=== PATIENT | female | born 1940 | race Caucasian/White ===

== ENCOUNTER → 2018-09-19 17:48 | Outpatient (CLI) | payer MEDICARE, SELFPAY ==
[2018-09-19 20:06] LABS: M R Staph aureus DNA By PCR Negative (Negative); Probe Check PASS; Specimen Processing Control PASS; Staph aureus DNA By PCR NEGATIVE (Negative)
== END ==
PROVIDERS: Family Provider Family Medicine; PCP Family Medicine; Referring Provider Podiatrist; Visit Provider Podiatrist
DX: L60.0 Ingrowing nail (principal)
CPT/HCPCS: 87070; 87075; 87077; 87186; 87205; 87640

== ENCOUNTER → 2019-05-26 09:45 | Outpatient (CLI) | payer MEDICARE, BC, SELFPAY ==
--- NOTE | 2019-05-26 10:20 | US_ITS ---
STUDY: RENAL ULTRASOUND - COMPLETE REASON FOR EXAM: Female, 79 years old. Stage III chronic kidney disease TECHNIQUE: Ultrasound evaluation of the kidneys was performed with real-time and static hooper-scale imaging. COMPARISON: None. FINDINGS: RIGHT KIDNEY: Normal location of the right kidney, which is normal in size. The right kidney measures 10.8 x 4.2 x 4.8 cm. There is increased echogenicity of the cortex of the right kidney. The renal cortex measures 1.1 cm. Simple anechoic cyst of the right kidney measures 4.5 cm. There are no right renal calculi. There is no right hydronephrosis. DISTAL RIGHT URETER: There is non-visualization of the distal right ureter. There is no demonstrated right ureterovesical junction calculus. There is no demonstrated right ureteral jet. LEFT KIDNEY: Normal location of the left kidney, which is normal in size. The left kidney measures 10.4 x 3.5 x 3.9 cm. There is increased echogenicity of the cortex of the left kidney. The renal cortex measures 1.0 cm. There is no left renal mass or cyst. There are no left renal calculi. There is no left hydronephrosis. DISTAL LEFT URETER: There is non-visualization of the distal left ureter. There is no demonstrated left ureterovesical junction calculus. There is a visualized left ureteral jet. BLADDER: The distended urinary bladder has a volume of 335 ml There is a normal wall thickness of the distended urinary bladder. There is no demonstrated mass within the urinary bladder. There are no demonstrated bladder calculi. US/Kidney and Bladder IMPRESSION: 1. No hydronephrosis. 2. Increased echogenicity of the renal cortices compatible with history of chronic kidney disease. 3. Simple right renal cyst. Electronically Signed: Sarbjit Rodriguez MD ([place]) at 8:04 EST , Service support ,
== END ==
PROVIDERS: Family Provider Family Medicine; PCP Family Medicine; Referring Provider Internal Medicine; Visit Provider Internal Medicine
DX: N18.3 Chronic kidney disease, stage 3 (moderate) (principal)
CPT/HCPCS: 76770

== ENCOUNTER 2020-06-24 10:43 | Outpatient (RCR) | payer MEDICARE, BC, SELFPAY ==
[2014-09-09 08:38] VITALS: BMI 43.7
== END 2020-06-24 23:59 ==
LOC: IMMUN 10:43
PROVIDERS: PCP Family Medicine; Referring Provider Family Medicine; Visit Provider Family Medicine
DX: Z23 Encounter for immunization (principal)
CPT/HCPCS: 0011A; 0012A

== ENCOUNTER 2021-02-18 10:54 | Emergency (ER) | payer MEDICARE, BC, SELFPAY ==
[2021-02-18 10:54] VITALS: BP 177/99; PULSE 62; RESP 18; TEMP 36.4; O2SAT 98; BMI 42.4
--- NOTE | 2021-02-18 11:05 | CT_ITS ---
HISTORY: Trauma, head injury TECHNIQUE: Multiple axial images were obtained of the brain without intravenous contrast. A radiation dose optimization technique was used for this scan. IV Contrast dosage and agent: None. COMPARISON: 09/09/14 FINDINGS: # of images incl. paperwork: 240 PARANASAL SINUSES AND MASTOID AIR CELLS: Right maxillary sinus hematoma. INTRACRANIAL HEMORRHAGE: None. BRAIN PARENCHYMA: No CT evidence of stroke. No intracranial masses. There is preservation of the ttae/white matter interface. Posterior fossa structures are unremarkable. There is hypoattenuation of the periventricular white matter. Chronic involutional changes are noted. CSF SPACES: Appropriate for age. There is no hydrocephalus. MASS EFFECT: None. CALVARIUM: Minimally displaced fractures of the anterior lateral wall right maxillary sinus, inferolateral wall right orbit. CT/Brain/Head without Contrast IMPRESSION: Chronic involutional and white matter changes. No acute intracranial process. Fractures of the right orbit and maxillary sinus. Individualized dose optimization techniques were used for this CT. at 1236 Reported and signed by: Derick Mike MD Electronically Signed: Derick Mike MD at 12:35 EDT Tel , Service support ,
--- NOTE | 2021-02-18 11:07 | EDS_ITS ---
HPI HPI - Fall History of Present Illness Chief Complaint: Fall Detail of Chief Complaint: Fall with injury to right posterior ribs and head Informant: patient Narrative Narrative: Patient states that she was walking into the laundry room when she tripped and fell. Patient hit her head but no loss of consciousness. She is complaining of some pain to her posterior right ribs. She denies any neck pain. She denies abdominal pain. She denies shortness of breath. She is unsure of her last tetanus shot. Patient did sustain laceration to the right lateral orbit [facility] Medical History (Updated 02/18/21 @ 12:[address] Ahsan Meyers, DO) Hyperlipemia Hypertension Home Medications aspirin 81 mg PO DAILY@0800 09/09/14 [History Last Taken 09/08/14 09:00] atorvastatin 20 mg PO QHS 09/09/14 [History Last Taken 09/08/14 22:00] amlodipine 5 mg PO DAILY 02/18/21 [History Last Taken Unknown] azithromycin [Zithromax] 250 mg PO DAILY 4 Days #4 tab 02/18/21 [Rx Last Taken Unknown] carvedilol 25 mg PO BID 02/18/21 [History Last Taken Unknown] irbesartan 300 mg PO DAILY 02/18/21 [History Last Taken Unknown] spironolactone 25 mg PO DAILY 02/18/21 [History Last Taken Unknown] Allergy/AdvReac Type Severity Reaction Status Date / Time erythromycin base Allergy Other Verified 02/18/21 11:01 Penicillins [PCN] Allergy Hives Verified 02/18/21 11:01 Surgical History (Updated 02/18/21 @ 10:59 by Danilo Martin) H/O: hysterectomy History of coronary artery stent placement Social History Smoking Status: Former smoker ROS ROS ED Constitutional Constitutional ED: Reports systems reviewed and no addt'l complaints, except as documented; Denies body ache(s), change in weight or chills Eyes Eyes: Denies acute decrease in peripheral vision, change in vision, double vision or loss of vision ENT ENT ED: Reports none and other Details: Laceration right lateral orbit ; Denies ear pain, lip swelling, loss taste/smell, neck pain, otalgia or sore throat Cardiovascular Cardiovascular: Reports none; Denies abdominal pain, chest pain with activity, leg edema, lightheadedness, palpitations, rapid heart rate or syncope Respiratory/Chest Respiratory/Chest: Reports none; Denies change in mental status, dry cough, dyspnea, hemoptysis, shortness of breath at rest or shortness of breath with exertion Gastrointestinal Gastrointestinal: Reports none; Denies abdominal pain, change in stool character, diarrhea, hematemesis, hematochezia, melena, rectal bleeding or vomiting Genitourinary Genitourinary ED: Reports none; Denies abdominal discomfort, anuria, dysuria, genital pain or polyuria Musculoskeletal Musculoskeletal: Reports none and other Details: Right posterior rib pain ; Denies arthralgias, back pain, difficulty walking, extremity pain, muscle weakness or myalgias Integumentary Reports none; Denies abscess or rash Neurologic Neurologic: Reports none; Denies abnormal gait, confusion, focal weakness, frequent falls, headache(s), loss of vision, numbness, paresthesias, radicular pain, vertigo or weakness Psychiatric Psychiatric: Reports systems reviewed and no addt'l complaints, except as documented and none; Denies behavioral changes, confusion, difficulty concentrating, hallucinations, suicidal ideation, tactile hallucinations or visual hallucinations Endocrine Endocrinology: Denies none, cold intolerance, excessive sweating, fatigue or heat intolerance Hematologic/Lymphatic Hematologic/Lymphatic: Reports none; Denies anemia, easy bleeding or easy bruising Allergic/Immunologic Allergic/Immunologic ED: Denies as per HPI, none, lip swelling, mouth swelling, throat swelling, tongue swelling or hives EXAM Physical Exam Const Vital Signs: 02/18/21 10:54 02/18/21 11:08 Temperature 97.5 F L Temperature Source Oral Pulse Rate 62 Respiratory Rate 18 Respiratory Effort Normal Respiratory Depth Normal Respiratory Pattern Normal Blood Pressure 177/99 H Blood Pressure Mean 125 Pulse Ox 98 Oxygen Delivery Method Room Air Room Air Positive well nourished and well developed General Appearance ED: well developed and NAD HEENT Reports TM's clear and moist mucous membranes HEENT Narrative: Patient is a 3.5 cm laceration to right lateral orbit is well approximated without active bleeding. No real bony tenderness on exam. No C- spine tenderness on palpation. normocephalic; Negative for trauma or tenderness Tympanic Membrane ED: Yes TM's clear Eyes PERRL and EOMs intact bilaterally General Eye ED: Negative for pale conjunctiva or scleral icterus Neck no lymphadenopathy, supple and no JVD General: Negative for tenderness Chest Wall inspection of chest normal and palpation of chest normal Chest: Negative for tenderness Resp normal respiratory effort and clear to auscultation bilaterally Effort and Inspection: Negative for respiratory distress or pain with movement Auscultation: Negative for rhonchi, wheezes or diminished lung sounds Cardio regular rate, regular rhythm, S1 normal heart sound, S2 normal heart sound and no murmurs Peripheral Pulses: pulses 2+ throughout GI normal to inspection, nondistended, normoactive bowel sounds, soft to palpation, non-tender, non-distended and no masses Back/Spine no CVA tenderness and no thoracic nor lumbar tenderness Back/Spine Narrative: Patient has tenderness palpation over the right lower posterior ribs. No ecchymosis or bruising noted. There is no crepitus or subcu emphysema. Extremity normal to inspection General Extremety ED: Negative for edema General Extremity: Negative for edema Neuro oriented x3, CN's II-XII intact bilaterally, no sensory deficits noted and gait normal Sensorium / Orientation: awake, alert, oriented to person, oriented to place and oriented to time Motor Exam: strength 5/5 throughout and strength abnormal Psych mental status grossly normal Skin no rashes or lesions noted and no wounds MDM MDM MDM Narrative Medical decision making narrative: Patient has noted fracture of right maxillary sinus and inferior lateral orbit that is essentially nondisplaced. Patient case will be discussed with ENT. I will start patient on antibiotic and she did not want thing for pain. Patient to have her sutures removed in 5 to 7 days. Radiography Diagnostic Testing: Radiology Impression Brain CT 02/18/21 11:05 IMPRESSION: Chronic involutional and white matter changes. No acute intracranial process. Fractures of the right orbit and maxillary sinus. Individualized dose optimization techniques were used for this CT. at 1236 Reported and signed by: Derick Mike MD Electronically Signed: Derick Mike MD at 12:35 EDT Tel , Service support , Ribs w/Chest X-Ray 02/18/21 11:33 IMPRESSION: No acute radiographic abnormality. at 1229 Reported and signed by: Derick Mike MD Electronically Signed: Derick Mike MD at 12:28 EDT Tel , Service support , Procedures Lacerations 3.5 cm laceration right lateral orbit: Length: 1.38 in Depth: Sub Q Shape: Linear Prep: Sterile Conditions Laceration repair: Irrigated, Lidocaine, Local and Skin sutures Irrigated (ml): 50 Number of Sutures/[place]: 6 Suture Information: Ethilon and Simple Discharge Plan Triage Chief Complaint: Fall ED Provider: Ahsan Meyers Dx/Rx/DC Orders Clinical Impression: Facial laceration, Closed head injury, Orbital fracture, Fracture of maxillary sinus Instructions: ED Facial Fracture, ED Head Injury (Adult), ED Laceration: All Closures Prescriptions: New azithromycin [Zithromax] 250 mg tablet 250 mg PO DAILY 4 Days Qty: 4 RF: 0 No Action atorvastatin 20 MG tablet 20 mg PO QHS RF: 0 aspirin 81 MG tablet,chewable 81 mg PO DAILY@0800 RF: 0 carvedilol 25 mg Tablet 25 mg PO BID RF: 0 amlodipine 5 mg Tablet 5 mg PO DAILY RF: 0 spironolactone 25 mg Tablet 25 mg PO DAILY RF: 0 irbesartan 300 mg Tablet 300 mg PO DAILY RF: 0 Primary Care Provider: Simone Manuel Referrals: Dave Johnson MD [STAFF PHYSICIAN] - 5 Days for suture removal Simone Manuel MD [Primary Care Provider] - Disposition Disposition: Home, Self Care
--- NOTE | 2021-02-18 11:33 | RAD_ITS ---
HISTORY: Trauma, fall, lateral rib pain EXAMINATION/TECHNIQUE: XR Ribs Unilateral W/ PA Chest Min 3 Views: COMPARISON: Chest x-ray October 19, 2012 FINDINGS: LINES/DEVICES: None. LUNGS: No consolidation, edema or effusion. No pneumothorax. MEDIASTINUM AND CARDIOVASCULAR STRUCTURES: Cardiac silhouette not enlarged. Central airways and mediastinal contour are unremarkable. RIBS AND OSSEOUS STRUCTURES: No evidence of an acute displaced rib fracture. RAD/Ribs Uni Min 3V w/PA Chest IMPRESSION: No acute radiographic abnormality. at 1229 Reported and signed by: Derick Mike MD Electronically Signed: Derick Mike MD at 12:28 EDT Tel , Service support ,
[2021-02-18] MEDS: Diphth,Pertuss(Acell),Tet Vac 0.5 ML Vial IM (13:14)
[2021-02-18] MEDS: Azithromycin 250 MG Tablet 500 MG PO (13:19)
[2021-02-18 13:21] VITALS: BP 167/102; PULSE 62; RESP 16; O2SAT 97
== END 2021-02-18 13:41 | disposition home or self-care (01) ==
PROVIDERS: Emergency Provider Emergency Medicine; PCP Family Medicine
DX: S01.81XA Laceration without foreign body of other part of head, initial encounter (principal); S02.85XA Fracture of orbit, unspecified, initial encounter for closed fracture; S02.401A Maxillary fracture, unspecified side, initial encounter for closed fracture; E78.5 Hyperlipidemia, unspecified; I10 Essential (primary) hypertension; W01.0XXA Fall on same level from slipping, tripping and stumbling without subsequent striking against object, initial encounter; Z79.82 Long term (current) use of aspirin; Z79.899 Other long term (current) drug therapy; Z87.891 Personal history of nicotine dependence
CPT/HCPCS: 12013; 70450; 71101; 90471; 90715; 96372; 99285

== ENCOUNTER 2021-05-02 10:52 | Emergency (ER) | payer MEDICARE, BC, SELFPAY ==
[2021-05-02 10:52] VITALS: BP 156/79; PULSE 66; RESP 18; TEMP 36.3; O2SAT 98; BMI 39.8
--- NOTE | 2021-05-02 11:22 | CT_ITS ---
STUDY: CT BRAIN WITHOUT CONTRAST REASON FOR EXAM: Female, 81 years old. Dizziness following a fall. Loss of consciousness. RADIATION DOSAGE (If Supplied By Facility): CTDIvol = ( 44.99 ) mGy, DLP = ( 745.49 ) mGycm TECHNIQUE: Transaxial CT imaging of the brain was performed without administration of intravenous contrast material. Individualized dose optimization techniques were used for this CT. COMPARISON: Comparison is made with prior study dated 02/18/2021. FINDINGS: Normal soft tissue structures. Normal calvarium. There is mild cerebral atrophy with widening of the extra-axial spaces and ventricular dilatation. Normal white matter tracts of the cerebral hemispheres. Tiny old lacunar infarcts in the basal ganglia. Old lacunar infarct in the insular cortex of the left temporal lobe. Normal brainstem. Normal cerebellum. There is no intracranial hemorrhage. There are no findings of an acute ischemic infarction. Prior fracture of the lateral wall of the right maxillary sinus. CT/Brain/Head without Contrast IMPRESSION: Chronic involutional changes of the brain. Electronically Signed: Jason Hernandez MD at 12:28 EST , Service support ,
--- NOTE | 2021-05-02 11:24 | ED.VIS.FALL ---
HPI HPI - Fall History of Present Illness Chief Complaint: Fall Detail of Chief Complaint: May have passed out. Informant: patient and family Occured/Mechanism Occurred: Today Usually ambulates: Without assistance Pain/Injury Pain Location: none Associated Symptoms Associated Symptoms: Positive for Loss of consciousness; Negative for Parasthesias, Weakness, Loss of function, Inability to ambulate and Amnesia Narrative Narrative: 81-year-old female was at home making breakfast cooking oatmeal in the next thing she remembers is waking up on the floor. Thinks she may have passed out. Says the only pain she has in her tailbone. She denies any headache or neck pain. Says she has had some dizziness lately. She does have a history of coronary disease with a stent and hypertension. Yellow anticoagulation she is on his aspirin. She denies any recent illness other than URI symptoms last several days. She denies vomiting, diarrhea or melena. No chest pain or headaches. Prior similar symptoms: No Recent Illness/Hospitalization: No PFSH PFSH Medical History Hyperlipemia Hypertension Home Medications aspirin 81 mg PO DAILY@0800 09/09/14 [History Last Taken 09/08/14 09:00] atorvastatin 20 mg PO QHS 09/09/14 [History Last Taken 09/08/14 22:00] amlodipine 5 mg PO DAILY 02/18/21 [History Last Taken Unknown] azithromycin [Zithromax] 250 mg PO DAILY 4 Days #4 tab 02/18/21 [Rx Last Taken Unknown] carvedilol 25 mg PO BID 02/18/21 [History Last Taken Unknown] irbesartan 300 mg PO DAILY 02/18/21 [History Last Taken Unknown] spironolactone 25 mg PO DAILY 02/18/21 [History Last Taken Unknown] Allergy/AdvReac Type Severity Reaction Status Date / Time erythromycin base Allergy Other Verified 05/02/21 10:57 Penicillins [PCN] Allergy Hives Verified 05/02/21 10:57 Surgical History H/O: hysterectomy History of coronary artery stent placement Social History Smoking Status: Former smoker ROS ROS ED ROS Narrative URI-like symptoms. Review of Systems ROS Unobtainable: Denies due to encephalopathy Constitutional Constitutional ED: Denies fever(s) Eyes Eyes: Denies change in vision ENT ENT ED: Denies ear pain Cardiovascular Cardiovascular: Denies chest pain Respiratory/Chest Respiratory/Chest: Reports cough; Denies dyspnea Gastrointestinal Gastrointestinal: Denies abdominal pain, diarrhea, nausea or vomiting Genitourinary Genitourinary ED: Denies dysuria Musculoskeletal Musculoskeletal: Denies myalgias Integumentary Denies rash Neurologic Neurologic: Denies headache(s) Psychiatric Psychiatric: Denies depression Endocrine Endocrinology: Denies polyuria Hematologic/Lymphatic Hematologic/Lymphatic: Denies easy bruising Allergic/Immunologic Allergic/Immunologic ED: Denies urticaria EXAM Physical Exam Narrative Exam Narrative: Hearing 81-year-old female. No acute distress. Vital signs stable afebrile. Pulse ox 90% on room air no hypoxia. HEENT exam unremarkable. Atraumatic nontender. No hematomas or lacerations. C-spine nontender. Full range of motion. Trachea midline. Lungs clear to auscultation bilaterally. Heart regular rate and rhythm rate about 65 no murmur. Chest were nontender. Abdomen soft nontender. Back nontender except mild tenderness over her distal coccyx. Pelvic girdle intact nontender. Moving all 4 extremities. Nontender, no edema. No deformity. Neurologically she is awake and alert with no focal motor deficits. Const Vital Signs: 05/02/21 10:52 05/02/21 12:24 05/02/21 12:25 Temperature 97.4 F L Temperature Source Temporal Pulse Rate 66 Pulse Rate [Lying] 57 L Pulse Rate [Sitting] 61 Pulse Rate [Standing] 55 L Respiratory Rate 18 Blood Pressure 156/79 H Blood Pressure [Lying] 123/60 H Blood Pressure [Sitting] 138/75 H Blood Pressure [Standing] 120/77 Blood Pressure Mean 104 Blood Pressure Mean [Lying] 81 Blood Pressure Mean [Sitting] 96 Blood Pressure Mean [Standing] 91 Pulse Ox 98 96 Oxygen Delivery Method Room Air Room Air 05/02/21 13:26 Temperature Temperature Source Pulse Rate 66 Pulse Rate [Lying] Pulse Rate [Sitting] Pulse Rate [Standing] Respiratory Rate 15 Blood Pressure 137/73 H Blood Pressure [Lying] Blood Pressure [Sitting] Blood Pressure [Standing] Blood Pressure Mean 94 Blood Pressure Mean [Lying] Blood Pressure Mean [Sitting] Blood Pressure Mean [Standing] Pulse Ox 98 Oxygen Delivery Method Room Air Positive well nourished, well developed and obese; Negative for cachectic, contractures or unkempt General Appearance ED: well developed and NAD; Negative for unkempt, cachectic or contractures Nutritional Appearance: obese; Negative for cachectic HEENT Reports normocephalic atraumatic; Negative for trauma or tenderness Eyes PERRL and EOMs intact bilaterally General Eye ED: Negative for pale conjunctiva or scleral icterus Neck full ROM, no lymphadenopathy and supple General: Negative for tenderness Chest Wall inspection of chest normal and palpation of chest normal Resp normal respiratory effort, no retractions and clear to auscultation bilaterally Auscultation: Negative for rales, rhonchi or wheezes Cardio regular rate, regular rhythm, S1 normal heart sound, S2 normal heart sound and no murmurs GI non-tender, non-distended and no masses Auscultation: normoactive bowel sounds Palpation: soft; Negative for guarding or rebound tenderness present Back/Spine no CVA tenderness Back/Spine Narrative: Mild tenderness over her distal tailbone. Lumbar spine nontender. General Back: Negative for CVA tenderness Extremity normal to inspection and full ROM Neuro oriented x3, CN's II-XII intact bilaterally, moves all extremities, no focal motor deficits and no sensory deficits noted Deanne Coma Scale: document GCS findings Spontaneous Obeys Commands Oriented 15 Sensorium / Orientation: alert, oriented to person, oriented to place and oriented to time; Negative for orientation impaired, confused, lethargic or stuporous Motor Exam: strength 5/5 throughout Psych mental status grossly normal and thought process normal Appearance: Negative for unkempt Skin Lesions: no lesions Rashes: no rashes and rashes noted MDM MDM MDM Narrative Medical decision making narrative: 81-year-old female possible syncopal episode at home. Versus she just fell. There may have been loss of consciousness. CAT scan labs are being obtained. Her exam is benign. She may have tailbone contusion. Repeat exam patient is doing well at 1:37 PM. Feels fine lying in bed. Orthostatic vital signs were negative. CAT scan of her brain was unremarkable per the radiologist. I reviewed it also. Discussed with patient causes of syncope. She did not want to be admitted to the hospital. I will speak to the on-call physician for her primary care physician and she will follow up for possible cardiac monitoring. Lab Data Attestation: I reviewed the patient's lab results. Lab results narrative: CBC shows a white count of 7. Hemoglobin 12.8. Electrolytes unremarkable gap of 7 BUN 24 creatinine 1.34. Glucose 139. High-sensitivity troponin is normal at 10. Labs: Laboratory Results - last 24 hr 05/02/21 05/02/21 11:40 11:40 WBC 7.3 RBC 4.31 Hgb 12.8 Hct 40.4 MCV 93.7 MCH 29.7 MCHC 31.7 L RDW Std Deviation 46.5 H RDW Coeff of Darren 13.5 Plt Count 284 MPV 10.5 Immature Gran % (Auto) 0.300 Neut % (Auto) 72.4 H Lymph % (Auto) 13.5 L [place] % (Auto) 13.0 H Eos % (Auto) 0.5 Baso % (Auto) 0.3 Absolute Neuts (auto) 5.3 Absolute Lymphs (auto) 0.98 Nucleated RBC % 0 Sodium 139 Potassium 4.4 Chloride 107 Carbon Dioxide 25.0 Anion Gap 7 BUN 24 H Creatinine 1.34 H Estim Creat Clear Calc 26.31 Est GFR (MDRD) Af Amer 49 L Est GFR (MDRD) Non-Af 40 L BUN/Creatinine Ratio 17.9 Glucose 139 H Calcium 9.3 Troponin I High Sens 10 Radiography Diagnostic Testing: Chest x-ray portable single view interpreted by myself shows no acute abnormality. Normal cardiac silhouette. Normal mediastinum. No infiltrates. Rhythm Strip Rhythm Strip: Sinus Rhythm Rate: 59 Ectopy: None EKG Initial EKG: Attestation: I personally reviewed and interpreted this EKG as follows: Interpretation: Sinus Rhythm and Sinus Bradycardia Comments: Sinus bradycardia rate of 59. No acute signs of VT or ischemia. First-degree AV block with a OK interval of 232. Discharge Plan Triage Chief Complaint: Fall ED Provider: Aditya Yanez Dx/Rx/DC Orders Clinical Impression: Syncope Instructions: Causes of Syncope Prescriptions: No Action atorvastatin 20 MG tablet 20 mg PO QHS RF: 0 aspirin 81 MG tablet,chewable 81 mg PO DAILY@0800 RF: 0 carvedilol 25 mg Tablet 25 mg PO BID RF: 0 amlodipine 5 mg Tablet 5 mg PO DAILY RF: 0 spironolactone 25 mg Tablet 25 mg PO DAILY RF: 0 irbesartan 300 mg Tablet 300 mg PO DAILY RF: 0 azithromycin [Zithromax] 250 mg tablet 250 mg PO DAILY 4 Days Qty: 4 RF: 0 Primary Care Provider: Simone Manuel Referrals: Simone Manuel MD [Primary Care Provider] - As soon as possible Activity Restrictions/Additional Instructions: Your labs, chest x-ray, EKG and CAT scan today were all unremarkable. Follow-up with your primary care doctor or your manager estate they may want to do cardiac monitoring to see if you are having an abnormal heart rhythm that may or may not be causing you to pass out. Disposition Disposition: Home, Self Care
[2021-05-02 11:53] LABS: Absolute Lymphocyte Count 0.98 X10^3/uL (0.83-4.51); Absolute Neutrophil Count 5.3 X10^3/uL (2.0-7.7); Basophil# 0.02 X10^3/uL; Basophil% 0.3 % (0-1); Eosinophil# 0.04 X10^3/uL; Eosinophils% 0.5 % (0-5); Hematocrit 40.4 % (37-47); Hemoglobin 12.8 g/dL (12.0-15.0); Lymphocyte # 0.98 X10^3/ul (0.83-4.51); Lymphocyte % 13.5 % (19-41); Mean Corp Hgb Conc 31.7 g/dL (32-36); Mean Corpuscular Hgb 29.7 pg (27.0-32.0); Mean Corpuscular Volume 93.7 fL (81-99); Mean Platelet Vol. 10.5 fl (6.2-12.0); Monocyte# 0.95 X10^3/uL; NRBC Flagged by Analyzer 0 % (0-5); Neutrophil # 5.27 X10^3/uL (2.7-7.7); Neutrophil % 72.4 % (47-70); Platelet Count 284 K/mm3 (150-450); RBC Distribution Width CV 13.5 % (11.6-14.6); RBC Distribution Width SD 46.5 fl (35.1-43.9); Red Blood Count 4.31 M/mm3 (4.2-5.4); White Blood Count 7.3 K/mm3 (4.4-11.0)
[2021-05-02 12:06] LABS: Anion Gap 7 (5-15); BUN 24 mg/dL (7-18); BUN/Creat Ratio 17.9 RATIO (10-20); Calcium,Total 9.3 mg/dL (8.5-10.1); Chloride 107 mmol/L (98-107); Creatinine, Serum 1.34 mg/dL (0.55-1.02); EST Glomerular Filtration Rate 40 mL/min (>60); Est Glom Filt Rate - Afr Amer 49 mL/min (>60); Estimated Creatinine Clearance 26.31 ml/min; Glucose 139 mg/dL (74-106); Potassium 4.4 mmol/L (3.5-5.1); Sodium Level 139 mmol/L (136-145); Troponin-I HS 10 pg/mL (3.0-54.0)
--- NOTE | 2021-05-02 12:15 | RAD_ITS ---
STUDY: X-RAY CHEST REASON FOR EXAM: Female, 81 years old. Chest pain. Dizziness. TECHNIQUE: Single AP portable view of the chest. COMPARISON: None. FINDINGS: EKG lateral views are seen. The lungs are clear and expanded. There is no demonstrated pleural abnormality. Normal size heart. Normal mediastinum and shilpa. Normal visualized pulmonary arteries. There is atherosclerotic calcification of the aortic arch with tortuosity. There is a levoscoliosis of the thoracic spine. Normal visualized ribs, clavicles, and shoulders. There is no demonstrated abnormality of the visualized soft tissue structures of the upper abdomen. RAD/Chest 1 View (Portable) IMPRESSION: No acute abnormality is seen. Electronically Signed: Jason Hernandez MD at 12:32 EST , Service support ,
[2021-05-02 12:24] VITALS: O2SAT 96
[2021-05-02 12:25] VITALS: BP 120/77; BP 123/60; BP 138/75; PULSE 55; PULSE 57; PULSE 61
[2021-05-02 13:26] VITALS: BP 137/73; PULSE 66; RESP 15; O2SAT 98
[2021-05-02 13:49] VITALS: BP 143/75; PULSE 81; RESP 6; O2SAT 98
== END 2021-05-02 13:50 | disposition home or self-care (01) ==
PROVIDERS: Emergency Provider Emergency Medicine; PCP Family Medicine
DX: R55 Syncope and collapse (principal); I10 Essential (primary) hypertension; E78.5 Hyperlipidemia, unspecified; E66.9 Obesity, unspecified; Z79.82 Long term (current) use of aspirin; Z79.899 Other long term (current) drug therapy; Z87.891 Personal history of nicotine dependence; Z95.5 Presence of coronary angioplasty implant and graft
CPT/HCPCS: 70450; 71045; 80048; 84484; 85025; 87426; 93005; 99284; A4216

== ENCOUNTER 2022-01-12 17:22 | Emergency (ER) | payer MEDICARE, SELFPAY ==
[2022-01-12 17:25] VITALS: BP 200/102; PULSE 100; RESP 18; TEMP 35.6; O2SAT 100; BMI 43.7
[2022-01-12 17:28] VITALS: BP 200/102; PULSE 100; RESP 18; TEMP 35.6; O2SAT 100
[2022-01-12 18:39] VITALS: BP 162/92; RESP 16
[2022-01-12] MEDS: Lidocaine 1% (20 ml mdv) 20 ML Vial 3 ML INFILT (18:39)
--- NOTE | 2022-01-12 18:57 | EX.ED.DYSGE1 ---
HPI <ASHLEY Hughes - Last Filed: 01/12/22 19:03> History of Present Illness Chief Complaint: Laceration Narrative Narrative: 81-year-old female who has history of hypertension, hyperlipidemia, CAD who is tetanus vaccination was up-to-date presents to the emergency department with a laceration to the left second digit. Patient states that she was sharpening a knife because she was making dinner, she then sliced the back of the left second digit. Patient has full range of motion of the digit. Patient saw the blood, and thought that she needed stitches. Denies any other injury. PFS <ASHLEY Hughes - Last Filed: 01/12/22 19:03> [facility] Medical History Hyperlipemia Hypertension Home Medications aspirin 81 mg chewable tablet 81 mg PO DAILY@0800 09/09/14 [History Last Taken 09/08/14 09:00] atorvastatin 20 mg tablet 20 mg PO QHS 09/09/14 [History Last Taken 09/08/14 22:00] amlodipine 5 mg tablet 5 mg PO DAILY 02/18/21 [History Last Taken Unknown] azithromycin 250 mg tablet (Zithromax) 250 mg PO DAILY 4 days #4 tabs 02/18/21 [Rx Last Taken Unknown] carvedilol 25 mg tablet 25 mg PO BID 02/18/21 [History Last Taken Unknown] irbesartan 300 mg tablet 300 mg PO DAILY 02/18/21 [History Last Taken Unknown] spironolactone 25 mg tablet 25 mg PO DAILY 02/18/21 [History Last Taken Unknown] Allergy/AdvReac Type Severity Reaction Status Date / Time erythromycin base Allergy Other Verified 05/02/21 10:57 Penicillins [PCN] Allergy Hives Verified 05/02/21 10:57 Surgical History H/O: hysterectomy History of coronary artery stent placement Social History Smoking Status: Former smoker ROS <ASHLEY Hughes - Last Filed: 01/12/22 19:03> ROS ED ROS Narrative Constitutional: Negative for fever, chills, weight loss, weakness Eyes: Negative for vision loss, vision change, double vision ENT: Negative for any sore throat, ear pain, congestion Cardiovascular: Negative for any chest pain, tightness, palpitations Respiratory: Negative for any cough, sputum production, hemoptysis, dyspnea, dyspnea on exertion, orthopnea Gastrointestinal: Negative for any abdominal pain, nausea, vomiting, diarrhea, constipation, blood in stool, blood in vomit : Negative for any urinary frequency, dysuria, retention, blood in urine Muscle skeletal: Negative for any muscle joint pain, stiffness, myalgias, arthralgias, neck pain, back pain Neurological: Negative for any headache, syncope, numbness or tingling, dizziness Skin: Negative for any rashes, lumps, itching, abrasions. Positive for laceration to the left second digit Psychiatric: Negative for any depression, anxiety, stress, suicidal ideation, homicidal ideation Hematologic: Negative for any easy bruising, excessive bruising, easy bleeding Allergies: Negative for any eczema, hives, rash EXAM <ASHLEY Hughes - Last Filed: 01/12/22 19:03> Physical Exam Narrative Exam Narrative: Vital signs reviewed. Extremities: No peripheral edema, no signs of gross trauma or deformity. Active full range of motion of all extremities. Patient has a 2.5 cm vertical laceration to the left second finger on the dorsal aspect. This laceration extends from the DIP joint to the PIP joint, there is no tendon involvement, no foreign body. Patient able to flex and extend the second digit against resistance. Neuro: Cranial nerves II through XII intact, no focal neurological deficits. Skin: Clean dry and intact with no rash, purpura, petechiae, vesicles or pustules. Laceration to left index finger 2.5 cm Backs/flank: No CVA tenderness, no midline spinal tenderness, no deformity. Psych: Normal mood and affect. No SI, HI or acute psychosis. Const Vital Signs: 01/12/22 17:25 01/12/22 17:28 01/12/22 18:39 Temperature 96.1 F L 96.1 F L Temperature Source Temporal Temporal Pulse Rate 100 100 Respiratory Rate 18 18 16 Blood Pressure 200/102 H 200/102 H 162/92 H Blood Pressure Mean 134 134 115 Pulse Ox 100 100 Oxygen Delivery Method Room Air Room Air <Dr. Allan Stoner, DO - Last Filed: 01/12/22 19:21> Physical Exam Const Vital Signs: 01/12/22 17:25 01/12/22 17:28 01/12/22 18:39 Temperature 96.1 F L 96.1 F L Temperature Source Temporal Temporal Pulse Rate 100 100 Respiratory Rate 18 18 16 Blood Pressure 200/102 H 200/102 H 162/92 H Blood Pressure Mean 134 134 115 Pulse Ox 100 100 Oxygen Delivery Method Room Air Room Air [facility] <ASHLEY Hughes - Last Filed: 01/12/22 19:03> [facility] Treatment and Re-Evaluation Narrative: Patient appears well, patient appears nontoxic, vital signs are stable. Patient presents the [place] a laceration from a knife to the left second digit of the left hand. This is a generally uncomplicated laceration, there is no tendon involvement, negative for any foreign body. Patient did receive a digital block to this finger with lidocaine 1%. This area was irrigated with 200 cc of normal saline. I was able place 5 simple interrupted sutures of 4-0 Ethilon, edges approximated nicely. Sterile gloves, sterile drapes were used. Patient will have these removed in 10 to 12 days. She will be given a finger splint to help the integrity of the sutures. She will return for any worsening redness, fever chills nausea vomit <Dr. Allan Stoner, DO - Last Filed: 01/12/22 19:21> [facility] Treatment and Re-Evaluation Narrative: Patient appears well, patient appears nontoxic, vital signs are stable. Patient presents the [place] a laceration from a knife to the left second digit of the left hand. This is a generally uncomplicated laceration, there is no tendon involvement, negative for any foreign body. Patient did receive a digital block to this finger with lidocaine 1%. This area was irrigated with 200 cc of normal saline. I was able place 5 simple interrupted sutures of 4-0 Ethilon, edges approximated nicely. Sterile gloves, sterile drapes were used. Patient will have these removed in 10 to 12 days. She will be given a finger splint to help the integrity of the sutures. She will return for any worsening redness, fever chills nausea vomit I performed a history and physical examination of the patient and discussed management plan with the physician engineering assistant. I reviewed the physician engineering assistant's note and agree with the documented findings and plan of care. Patient sustained laceration of her digit while sharpening a knife. Wound was evaluated and found to be neurovascularly and tendon function intact. Please see suture note technique. Allan Stoner DO, MS Procedures <ASHLEY Hughes - Last Filed: 01/12/22 19:03> Lacerations Finger laceration: Length: 0.98 in Depth: Skin Shape: Linear Prep: Sterile Conditions and Shure-Clens Laceration repair: Irrigated and Lidocaine Irrigated (ml): 200 Number of Sutures/Gratis: 5 Suture Information: Ethilon Comment: Sterile gloves, sterile drapes were used. No foreign body noted. Discharge Plan Triage Chief Complaint: Laceration ED Midlevel Provider: Cuong [place] ED Provider: Allan Stoner Dx/Rx/DC Orders Clinical Impression: Finger laceration, Finger pain, left Instructions: ED Laceration Hand with ... Prescriptions: No Action atorvastatin 20 MG tablet 20 mg PO QHS Label Comments: Cholesterol aspirin 81 MG tablet,chewable 81 mg PO DAILY@0800 Label Comments: Blood thinner for heart health carvedilol 25 mg Tablet 25 mg PO BID amlodipine 5 mg Tablet 5 mg PO DAILY spironolactone 25 mg Tablet 25 mg PO DAILY irbesartan 300 mg Tablet 300 mg PO DAILY azithromycin [Zithromax] 250 mg tablet 250 mg PO DAILY 4 Days Qty: 4 0RF Rx Instructions: start on day 2 of therapy Primary Care Provider: Simone Manuel Referrals: Simone Manuel MD [Primary Care Provider] - Activity Restrictions/Additional Instructions: MovedPlease have the sutures removed in 10 to 12 days. Please use the finger splint, change dressings twice a day. Keep the area clean and dry. By PCP or urgent care Disposition Disposition: Home, Self Care
== END 2022-01-12 20:12 | disposition home or self-care (01) ==
LOC: ED 19:04
PROVIDERS: Emergency Provider Emergency Medicine; PCP Family Medicine; Visit Provider Emergency Medicine
DX: S61.211A Laceration without foreign body of left index finger without damage to nail, initial encounter (principal); I10 Essential (primary) hypertension; E78.5 Hyperlipidemia, unspecified; I25.10 Atherosclerotic heart disease of native coronary artery without angina pectoris; Z87.891 Personal history of nicotine dependence; Z79.82 Long term (current) use of aspirin; Z79.899 Other long term (current) drug therapy; W26.0XXA Contact with knife, initial encounter
CPT/HCPCS: 12001; 99282

== ENCOUNTER → 2022-09-20 | Outpatient (CLI) | payer MEDICARE, SELFPAY ==
[2022-09-20 11:36] LABS: Albumin, Serum 3.4 g/dL (3.2-5.0); BUN 29 mg/dL (7-18); BUN/Creat Ratio 23.8 RATIO (10-20); Calcium,Total 9.4 mg/dL (8.5-10.1); Chloride 110 mmol/L (98-107); Creatinine, Serum 1.22 mg/dL (0.55-1.02); EST Glomerular Filtration Rate 45 mL/min (>60); Est Glom Filt Rate - Afr Amer 54 mL/min (>60); Glucose 105 mg/dL (74-106); Phosphorus 2.9 mg/dL (2.5-4.9); Potassium 4.9 mmol/L (3.5-5.1); Sodium Level 141 mmol/L (136-145)
== END | disposition home or self-care (01) ==
LOC: LAB 10:37
PROVIDERS: PCP Family Medicine; Referring Provider Internal Medicine Nephrology; Visit Provider Internal Medicine Nephrology
DX: N17.9 Acute kidney failure, unspecified (principal)
CPT/HCPCS: 36415; 80069

== ENCOUNTER → 2022-09-25 | Outpatient (CLI) | payer MEDICARE, SELFPAY ==
--- NOTE | 2022-09-25 15:18 | US_ITS ---
EXAM: US RETROPERITONEAL LIMITED, RENAL CLINICAL INDICATION: None provided. ACUTE KIDNEY FAILURE, UNSPECIFIED TECHNIQUE: Limited grayscale and color Doppler sonographic evaluation of the retroperitoneum was performed. COMPARISON: No relevant prior studies available. FINDINGS: RIGHT KIDNEY: Right kidney measures 11.0 x 4.6 x 3.8 cm. The right renal cortex measures 1.2 cm. There is a 3.7 x 2.9 x 3.6 cm anechoic structure in the right kidney compatible with a cyst. No hydronephrosis. No shadowing calculus. No perinephric collection is demonstrated. LEFT KIDNEY: The left kidney measures 10.0 x 4.6 x 5.1 cm. The left renal cortex measures 1.1 cm. No hydronephrosis. No shadowing calculus. No perinephric collection is demonstrated. BLADDER: The bladder measures 9.0 x 4.4 x 7.0 cm for volume of 143 mL. The bladder wall measures 2 mm. There are bilateral ureteral jets present. Post void the bladder measures 2.5 x 2.7 x 5.5 cm for volume of 19.7 cm. US/Kidney and Bladder IMPRESSION: Simple cysts in the right kidney. No acute abnormalities identified. Electronically Signed: Kit Ohara MD at 16:25 EDT ,
== END | disposition home or self-care (01) ==
PROVIDERS: PCP Family Medicine; Referring Provider Internal Medicine Nephrology; Visit Provider Internal Medicine Nephrology
DX: N17.9 Acute kidney failure, unspecified (principal)
CPT/HCPCS: 76770

== ENCOUNTER → 2022-11-06 | Outpatient (CLI) | payer MEDICARE, SELFPAY ==
[2022-11-06 11:29] LABS: Bacteria 0 SEEN /hpf (None Seen); Mucous, Urine 0 SEEN /hpf (<or=2+); Squamous Epithelial Cells - UA 0 SEEN /hpf (5-10); White Blood Cells 0 SEEN /hpf (0-5)
[2022-11-06 12:02] LABS: Color, Urine Yellow (Yellow); Glucose, Dipstick Normal (Normal); Ketone-Dipstick Negative (Negative); Leukocyte Esterase-Dipstick 25 /ul (Negative); Nitrite-Dipstick Negative (Negative); Occult Blood-Urine Negative /ul (Negative); Protein-Dipstick Negative (Negative); Specific Gravity, Urine 1.015 (1.002-1.030); Urine Bilirubin Dipstick Negative (Negative); Urine Clarity Clear (Clear); Urine Urobilinogen Normal (Normal)
[2022-11-06 12:08] LABS: Hematocrit 38.2 % (37-47); Hemoglobin 12.3 g/dL (12.0-15.0); Mean Corp Hgb Conc 32.2 g/dL (32-36); Mean Corpuscular Hgb 29.6 pg (27.0-32.0); Mean Platelet Vol. 10.4 fl (6.2-12.0); Platelet Count 304 K/mm3 (150-450); RBC Distribution Width CV 13.5 % (11.6-14.6); Red Blood Count 4.15 M/mm3 (4.2-5.4)
[2022-11-06 12:40] LABS: Red Blood Cells-Urine 0-5 SEEN /hpf (0-5)
[2022-11-06 12:53] LABS: Albumin, Serum 3.4 g/dL (3.2-5.0); BUN 25 mg/dL (7-18); BUN/Creat Ratio 22.1 RATIO (10-20); Calcium,Total 9.1 mg/dL (8.5-10.1); Chloride 112 mmol/L (98-107); Creatinine, Serum 1.13 mg/dL (0.55-1.02); EST Glomerular Filtration Rate 49 mL/min (>60); Est Glom Filt Rate - Afr Amer 59 mL/min (>60); Glucose 110 mg/dL (74-106); Phosphorus 2.6 mg/dL (2.5-4.9); Potassium 4.5 mmol/L (3.5-5.1); Sodium Level 140 mmol/L (136-145)
[2022-11-06 12:56] LABS: PTHIN 82.4 pg/mL (18.4-80.1)
== END | disposition home or self-care (01) ==
LOC: LAB 11:23
PROVIDERS: PCP Family Medicine; Referring Provider Internal Medicine Nephrology; Visit Provider Internal Medicine Nephrology
DX: N17.9 Acute kidney failure, unspecified (principal)
CPT/HCPCS: 36415; 80069; 81001; 83970; 85027

== ENCOUNTER → 2022-11-27 | Outpatient (CLI) | payer MEDICARE, SELFPAY ==
[2022-11-27 17:42] LABS: Absolute Lymphocyte Count 1.92 X10^3/uL (0.83-4.51); Basophil# 0.03 X10^3/uL; Basophil% 0.4 % (0-1); Eosinophil# 0.23 X10^3/uL; Eosinophils% 3.3 % (0-5); Hematocrit 42.7 % (37-47); Hemoglobin 13.4 g/dL (12.0-15.0); Lymphocyte # 1.92 X10^3/ul (0.83-4.51); Lymphocyte % 27.2 % (19-41); Mean Corp Hgb Conc 31.4 g/dL (32-36); Mean Corpuscular Hgb 29.4 pg (27.0-32.0); Mean Corpuscular Volume 93.6 fL (81-99); Mean Platelet Vol. 10.7 fl (6.2-12.0); Monocyte# 0.91 X10^3/uL; Monocyte% 12.9 % (0-10); NRBC Flagged by Analyzer 0 % (0-5); Neutrophil # 3.96 X10^3/uL (2.7-7.7); Neutrophil % 55.9 % (47-70); Platelet Count 334 K/mm3 (150-450); RBC Distribution Width CV 13.5 % (11.6-14.6); RBC Distribution Width SD 46.3 fl (35.1-43.9); Red Blood Count 4.56 M/mm3 (4.2-5.4); White Blood Count 7.1 K/mm3 (4.4-11.0)
[2022-11-27 18:26] LABS: Hepatitis C Antibody Non-Reactive (Nonreactive); Vitamin D,25 Hydroxy 39.2 ng/mL
[2022-11-27 18:46] LABS: ALB/GLOB Ratio 0.8 RATIO (0.9-2.4); AST(SGOT) 21 U/L (15-37); Albumin, Serum 3.7 g/dL (3.2-5.0); Alkaline Phosphatase 120 U/L (45-117); Anion Gap 5 (5-15); BUN 30 mg/dL (7-18); BUN/Creat Ratio 22.4 RATIO (10-20); Calcium,Total 9.7 mg/dL (8.5-10.1); Chloride 109 mmol/L (98-107); Creatinine, Serum 1.34 mg/dL (0.55-1.02); EST Glomerular Filtration Rate 40 mL/min (>60); Est Glom Filt Rate - Afr Amer 48 mL/min (>60); Globulin 4.5 g/dL (2.2-4.2); Glucose 92 mg/dL (74-106); Potassium 4.5 mmol/L (3.5-5.1); Protein, Total 8.2 g/dL (6.4-8.2); Sodium Level 137 mmol/L (136-145); Thyroid Stim Hormone (TSH) 2.64 uIU/mL (0.358-3.74)
[2022-11-27 19:18] LABS: Alanine Aminotransfer ALT/SGPT 34 U/L (13-56)
== END | disposition home or self-care (01) ==
PROVIDERS: PCP Family Medicine; Visit Provider Family Medicine Geriatric Medicine
DX: Z00.00 Encounter for general adult medical examination without abnormal findings (principal); I11.0 Hypertensive heart disease with heart failure; E78.5 Hyperlipidemia, unspecified; Z13.89 Encounter for screening for other disorder
CPT/HCPCS: 36415; 80053; 82306; 84443; 85025; 86803

== ENCOUNTER → 2022-12-11 | Outpatient (CLI) | payer MEDICARE, SELFPAY ==
--- NOTE | 2022-12-11 09:58 | BD_ITS ---
STUDY: DUAL ENERGY X-RAY ABSORPTIOMETRY / DXA REASON FOR EXAM: Female, 82 years old. [id number] TECHNIQUE: Bone Mineral Density (BMD) measurements of lumbar spine and bilateral hips were obtained. COMPARISON: None. FINDINGS: Lumbar Spine (L1-L4): g/cm2 (1.128) / T-score (1.4) / Z-score (4.0) Findings are suggestive of normal bone density with a low fracture risk. Left Femur Total: g/cm2 (0.691) / T-score (-2.1) / Z-score (0.3) Left Femoral Neck: g/cm2 (0.571) / T-score (-2.5) / Z-score (0.0) Right Femur Total: g/cm2 (0.732) / T-score (-1.7) / Z-score (0.6) Right Femoral Neck: g/cm2 (0.660) / T-score (-1.7) / Z-score (0.8) BD/Dexa Bone Density Study IMPRESSION: The patient is considered osteopenic as outlined below according to World [employer] Organization (WHO) criteria with a high fracture risk. Reference Information: The T-score is the number of standard deviations above or below the standard which is normal for young adults at their peak bone mineral density. The World Health Organization (WHO) interprets the T-scores as follows: Above -1 Normal bone density Between -1 and -2.5 Osteopenia Equal to / or below -2.5 Osteoporosis As a practical clinical guideline, osteopenia may be graded as follows: Mild -1 through -1.5 Moderate -1.6 through -2.0 Severe -2.1 through -2.4 The Z-score is the number of standard deviations above or below age-matched controls. A Z-score of less than -1.5 would be considered abnormal. References: 1. NIH Osteoporosis and Related Bone Diseases www osteo.org 2. International Society for Clinical Densitometry www iscd.org 3. National Osteoporosis Foundation www nof.org Electronically Signed: Jason Hernandez MD at 14:03 EDT ,
== END | disposition home or self-care (01) ==
LOC: OPBD 09:49
PROVIDERS: PCP Family Medicine Geriatric Medicine; Referring Provider Family Medicine Geriatric Medicine; Visit Provider Family Medicine Geriatric Medicine
DX: Z78.0 Asymptomatic menopausal state (principal)
CPT/HCPCS: 77080

== ENCOUNTER → 2023-01-25 | Outpatient (CLI) | payer MEDICARE, SELFPAY ==
--- NOTE | 2023-01-25 12:52 | ECHOD_ITS ---
Reason For Study: CHF Procedure This was a 2D Doppler, Color Flow transthoracic echocardiogram. Exam performed in department. Left Ventricle Normal LV size. Left ventricular systolic function is normal. The estimated ejection fraction is 60 %. No regional wall motion abnormalities noted. Right Ventricle Normal RV size. Normal systolic function. Atria The left atrium is mildly enlarged. The right atrium is moderately enlarged. Mitral Valve There is mild to moderate mitral annular calcification. Mild (1+) eccentric mitral valve insufficiency. Tricuspid Valve Normal tricuspid valve. Mild (1+) tricuspid valve insufficiency. Pulmonary artery systolic pressure is 34 mmHg. Aortic Valve Trisinus/trileaflet aortic valve. Mild focal aortic valve calcification. Great Vessels Normal aortic root. The pulmonary artery is normal size. Normal inferior vena cava. Pericardium/Pleural No pericardial effusion. MMode/2D Measurements & Calculations LVIDd: 5.3 cm IVSd: 1.2 cm Ao root diam: 3.5 cm LVIDs: 3.3 cm LVPWd: 1.1 cm RVDd: 3.4 cm FS: 36.8 % LAV(MOD-bp): 97.6 ml LVAd ap4: 30.4 cm2 LVAd ap2: 28.7 cm2 LAV(MOD-bp) Indexed: 48.1 ml/m2 LVLd ap4: 7.5 cm LVLd ap2: 7.2 cm LAV(MOD-sp2): 93.4 ml EDV(MOD-sp4): 97.8 ml EDV(MOD-sp2): 96.5 ml LAV(MOD-sp4): 102.1 ml EDV(sp4-el): 104.2 ml EDV(sp2-el): 97.9 ml LVAs ap4: 17.2 cm2 LVAs ap2: 17.0 cm2 LVLs ap4: 5.9 cm LVLs ap2: 6.1 cm ESV(MOD-sp4): 39.8 ml ESV(MOD-sp2): 38.1 ml ESV(sp4-el): 42.1 ml ESV(sp2-el): 40.1 ml EF(MOD-sp4): 59.3 % EF(MOD-sp2): 60.5 % EF(sp4-el): 59.6 % SV(MOD-sp4): 58.0 ml SV(MOD-sp2): 58.4 ml SV(sp4-el): 62.1 ml LA dimension(2D): 5.2 cm LA A4 area: 28.7 cm2 RA A4 area: 22.4 cm2 Time Measurements MV dec time: 0.25 sec Doppler Measurements & Calculations MV E max nik: 134.6 cm/sec Lat Peak E' Nik: 9.7 cm/sec Med Peak E' Nik: 6.3 cm/sec MV A max nik: 126.4 cm/sec E/E' lat: 13.9 E/E' med: 21.5 MV E/A: 1.1 Ao V2 max: 144.3 cm/sec LV V1 max: 126.2 cm/sec PA V2 max: 86.5 cm/sec Ao max P.3 mmHg LV V1 max P.4 mmHg Ao V2 mean: 95.4 cm/sec LV V1 mean P.8 mmHg Ao mean P.0 mmHg LV V1 mean: 79.0 cm/sec Ao V2 VTI: 35.3 cm LV V1 VTI: 31.7 cm AV (velocity ratio): 0.90 TR max nik: 264.6 cm/sec TR max P.0 mmHg ECHO/Echo Complete Interpretation Summary Normal LV size. Left ventricular systolic function is normal. The estimated ejection fraction is 60 %. The left atrium is mildly enlarged. The right atrium is moderately enlarged. Pulmonary artery systolic pressure is 34 mmHg. Ordering Physician: Alfonso Oneal Chi Referring Physician: Alfonso Oneal Chi Performed By: Kandice Wilkins, DANNI, RVT
== END | disposition home or self-care (01) ==
LOC: CVS 12:51
PROVIDERS: PCP Family Medicine Geriatric Medicine; Referring Provider Family Medicine Geriatric Medicine; Visit Provider Family Medicine Geriatric Medicine
DX: I25.10 Atherosclerotic heart disease of native coronary artery without angina pectoris (principal); I50.9 Heart failure, unspecified
CPT/HCPCS: 93306

== ENCOUNTER → 2023-01-30 | Outpatient (CLI) | payer MEDICARE, SELFPAY ==
[2023-01-30 15:47] LABS: Absolute Lymphocyte Count 1.21 X10^3/uL (0.83-4.51); Absolute Neutrophil Count 3.4 X10^3/uL (2.0-7.7); Basophil# 0.03 X10^3/uL; Basophil% 0.5 % (0-1); Eosinophil# 0.31 X10^3/uL; Eosinophils% 5.4 % (0-5); Hematocrit 39.3 % (37-47); Hemoglobin 12.6 g/dL (12.0-15.0); Lymphocyte # 1.21 X10^3/ul (0.83-4.51); Lymphocyte % 21.1 % (19-41); Mean Corp Hgb Conc 32.1 g/dL (32-36); Mean Corpuscular Hgb 29.7 pg (27.0-32.0); Mean Corpuscular Volume 92.7 fL (81-99); Mean Platelet Vol. 10.5 fl (6.2-12.0); Monocyte# 0.74 X10^3/uL; Monocyte% 12.9 % (0-10); NRBC Flagged by Analyzer 0 % (0-5); Neutrophil # 3.43 X10^3/uL (2.7-7.7); Neutrophil % 59.8 % (47-70); Platelet Count 317 K/mm3 (150-450); RBC Distribution Width CV 14.1 % (11.6-14.6); Red Blood Count 4.24 M/mm3 (4.2-5.4); White Blood Count 5.7 K/mm3 (4.4-11.0)
[2023-01-30 16:06] LABS: BNP,B-Type NATRIURETIC PEPTIDE 206.2 pg/mL (0-100)
[2023-01-30 16:09] LABS: Anion Gap 3 (5-15); BUN 22 mg/dL (7-18); Calcium,Total 9.6 mg/dL (8.5-10.1); Chloride 108 mmol/L (98-107); Creatinine, Serum 1.16 mg/dL (0.55-1.02); EST Glomerular Filtration Rate 47 mL/min (>60); Est Glom Filt Rate - Afr Amer 57 mL/min (>60); Glucose 96 mg/dL (74-106); Potassium 4.4 mmol/L (3.5-5.1); Sodium Level 138 mmol/L (136-145)
== END | disposition home or self-care (01) ==
LOC: POLAB3 15:01
PROVIDERS: PCP Family Medicine Geriatric Medicine; Visit Provider Family Medicine Geriatric Medicine
DX: N18.32 Chronic kidney disease, stage 3b (principal); R06.02 Shortness of breath
CPT/HCPCS: 36415; 80048; 83880; 85025

== ENCOUNTER 2023-02-24 10:35 | Emergency (ER) | payer MEDICARE, SELFPAY ==
[2023-02-24 10:35] VITALS: BP 156/77; PULSE 78; RESP 18; TEMP 35.8; O2SAT 99; BMI 42.0
--- NOTE | 2023-02-24 10:43 | RAD_ITS ---
INDICATION: fall EXAMINATION/TECHNIQUE: X-RAY - XR Hip Unilateral with Pelvis when performed; 2-3 Views COMPARISON: No relevant prior comparison study available FINDINGS: PELVIC BONES: No displaced fracture, destructive or sclerotic lesions. Note that overlapping bowel shadows may however obscure fine detail. Sacroiliac joints are unremarkable. No widening of the pubic symphysis. HIPS: There are degenerative changes of the hips. SOFT TISSUES: There are vascular calcifications. RAD/HIP, UNI W/ Pelvis 2-3 Views IMPRESSION: Degenerative changes of the hips. Atherosclerosis. Electronically Signed: Libia Wodos MD at 11:40 EDT ,
--- NOTE | 2023-02-24 10:43 | RAD_ITS ---
INDICATION: fall EXAMINATION/TECHNIQUE: X-RAY - LEFT XR Knee Complete 4 VIEWS COMPARISON: No relevant prior comparison study available FINDINGS: SOFT TISSUES: There are vascular calcifications. There is a joint effusion. No radiopaque foreign body. BONES/JOINTS: No acute fracture or subluxation.. Normal alignment. There are tricompartmental degenerative changes. No sclerotic or destructive changes observed. RAD/Knee 4 or More Views IMPRESSION: Tricompartmental degenerative changes. Joint effusion. Atherosclerosis. Electronically Signed: Libia Woods MD at 11:41 EDT ,
--- NOTE | 2023-02-24 10:44 | EDS_ITS ---
HPI History of Present Illness Chief Complaint: Fall Informant: patient and spouse/S.O. Onset/Context/Timing Onset: Today Narrative Narrative: Patient presents after a fall coming out of [employer] today. She states that she tripped on something in the parking lot as she was getting into her car landing on her left knee. She complains of pain to her left knee and left hip. She denies having surgery on her knee or hip in the past. She takes baby aspirin but no other form of anticoagulant. She did not strike her head and has no headache. [facility] Medical History (Updated 02/24/23 @ 12:[address] Kena Hahn MD) CAD (coronary artery disease) Hyperlipemia Hypertension Home Medications aspirin 81 mg chewable tablet 81 mg PO DAILY@0800 09/09/14 [History Last Taken 09/08/14 09:00] atorvastatin 20 mg tablet 20 mg PO QHS 09/09/14 [History Last Taken 09/08/14 22:00] amlodipine 5 mg tablet 5 mg PO DAILY 02/18/21 [History Last Taken Unknown] azithromycin 250 mg tablet (Zithromax) 250 mg PO DAILY 4 days #4 tabs 02/18/21 [Rx Last Taken Unknown] carvedilol 25 mg tablet 25 mg PO BID 02/18/21 [History Last Taken Unknown] irbesartan 300 mg tablet 300 mg PO DAILY 02/18/21 [History Last Taken Unknown] spironolactone 25 mg tablet 25 mg PO DAILY 02/18/21 [History Last Taken Unknown] Allergy/AdvReac Type Severity Reaction Status Date / Time erythromycin base Allergy Other Verified 05/02/21 10:57 Penicillins [PCN] Allergy Hives Verified 05/02/21 10:57 Surgical History (Updated 02/24/23 @ 10:[address] Kena Hahn MD) H/O: hysterectomy History of coronary artery stent placement Social History Smoking Status: Former smoker ROS ROS ED Constitutional Constitutional ED: Denies chills or fever(s) Eyes Eyes: Denies change in vision or discharge from eye(s) ENT ENT ED: Denies discharge from eye(s), rhinorrhea or sore throat Cardiovascular Cardiovascular: Denies chest pain or palpitations Respiratory/Chest Respiratory/Chest: Denies cough or dyspnea Gastrointestinal Gastrointestinal: Denies abdominal pain, nausea or vomiting Genitourinary Genitourinary ED: Denies dysuria Musculoskeletal Musculoskeletal: Reports extremity pain; Denies back pain Integumentary Reports other Details: Abrasion ; Denies Abrasions or rash Neurologic Neurologic: Denies headache(s) or weakness Psychiatric Psychiatric: Denies anxiety or depression Allergic/Immunologic Allergic/Immunologic ED: Denies lip swelling or urticaria EXAM Physical Exam Const Vital Signs: 02/24/23 10:35 Temperature 96.4 F L Temperature Source Temporal Pulse Rate 78 Respiratory Rate 18 Blood Pressure 156/77 H Blood Pressure Mean 103 Pulse Ox 99 Oxygen Delivery Method Room Air Positive well nourished and well developed General Appearance ED: well developed HEENT Reports normocephalic and head/scalp atraumatic Eyes PERRL and EOMs intact bilaterally Neck supple Chest Wall inspection of chest normal and palpation of chest normal Resp normal respiratory effort and clear to auscultation bilaterally Cardio regular rate and regular rhythm GI non-tender Auscultation: hypoactive bowel sounds Palpation: soft Back/Spine Back/Spine Narrative: No thoracic or lumbar tenderness. Extremity Extremity Narrative: Abrasions of the left anterior knee with mild focal tenderness. Patient able to straight leg raise and flex her knee. Mild tenderness along the lateral portion of the left hip at the greater trochanter. Leg lengths noted. Patient able to stand and transfer from a wheelchair to the bed. Neuro oriented x3 and no sensory deficits noted Sensorium / Orientation: alert Motor Exam: strength 5/5 throughout Psych mental status grossly normal Skin Skin Narrative: Knee abrasion as noted above. MDM MDM MDM Narrative Medical decision making narrative: Patient given Tylenol for pain and ice pack applied to the left knee. X-rays of the left knee and hip obtained to evaluate for fracture. Radiography Diagnostic Testing: Clinical Impression(s) from Imaging Studies Hip/Pelvis X-Ray 02/24/23 10:43 IMPRESSION: Degenerative changes of the hips. Atherosclerosis. Electronically Signed: Libia Woods MD at 11:40 EDT , Knee X-Ray 02/24/23 10:43 IMPRESSION: Tricompartmental degenerative changes. Joint effusion. Atherosclerosis. Electronically Signed: Libia Woods MD at 11:41 EDT , Treatment and Re-Evaluation :: Pelvis and left hip x-rays per my interpretation reveal arthritic changes with no acute fracture. Radiology interpretation reviewed and agrees. Left knee x- ray per my interpretation reveals significant arthritic changes but no fracture. Radiology interpretation reviewed and agrees. She does have a joint effusion noted. Test results discussed with patient and spouse at bedside. She will continue Tylenol and ice at home. She has a walker to help her ambulate. Return instructions provided. Discharge Plan Triage Chief Complaint: Fall Other Complaint: Lower Extremity Injury ED Provider: Kena Hahn Dx/Rx/DC Orders Clinical Impression: Fall, Contusion of knee, left Instructions: ED Contusion, Lower Extremity Prescriptions: No Action atorvastatin 20 MG tablet 20 mg PO QHS Patient Comments: Cholesterol aspirin 81 MG tablet,chewable 81 mg PO DAILY@0800 Patient Comments: Blood thinner for heart health carvedilol 25 mg Tablet 25 mg PO BID amlodipine 5 mg Tablet 5 mg PO DAILY spironolactone 25 mg Tablet 25 mg PO DAILY irbesartan 300 mg Tablet 300 mg PO DAILY azithromycin [Zithromax] 250 mg tablet 250 mg PO DAILY 4 Days Qty: 4 0RF Rx Instructions: start on day 2 of therapy Primary Care Provider: Alfonso Oneal Chi Referrals: Alfonso Oneal Chi, MD [Primary Care Provider] - 1-2 Weeks Disposition Disposition: Home, Self Care
[2023-02-24] MEDS: Acetaminophen 500 MG Tablet 1000 MG PO (10:52)
== END 2023-02-24 12:18 | disposition home or self-care (01) ==
PROVIDERS: Emergency Provider Emergency Medicine; PCP Family Medicine Geriatric Medicine; Visit Provider Emergency Medicine
DX: S80.02XA Contusion of left knee, initial encounter (principal); I25.10 Atherosclerotic heart disease of native coronary artery without angina pectoris; Y92.481 Parking lot as the place of occurrence of the external cause; E78.5 Hyperlipidemia, unspecified; Z87.891 Personal history of nicotine dependence; I10 Essential (primary) hypertension; W01.0XXA Fall on same level from slipping, tripping and stumbling without subsequent striking against object, initial encounter
CPT/HCPCS: 73502; 73564; 99283

== ENCOUNTER → 2023-04-23 | Outpatient (CLI) | payer MEDICARE, SELFPAY ==
[2023-04-23 11:22] LABS: Albumin, Serum 3.4 g/dL (3.2-5.0); BUN 26 mg/dL (7-18); BUN/Creat Ratio 22.8 RATIO (10-20); Chloride 111 mmol/L (98-107); Creatinine, Serum 1.14 mg/dL (0.55-1.02); EST Glomerular Filtration Rate 48 mL/min (>60); Est Glom Filt Rate - Afr Amer 58 mL/min (>60); Glucose 111 mg/dL (74-106); Phosphorus 2.8 mg/dL (2.5-4.9); Potassium 4.4 mmol/L (3.5-5.1); Protein, Urine (Random) 14.8 mg/dL (<11.9); Protein:Creat Ratio 122 mg/g CRE (0-200); Sodium Level 140 mmol/L (136-145)
== END | disposition home or self-care (01) ==
LOC: LAB 09:57 → POLAB3 10:15
PROVIDERS: PCP Family Medicine Geriatric Medicine; Referring Provider Internal Medicine Nephrology; Visit Provider Internal Medicine Nephrology
DX: N18.32 Chronic kidney disease, stage 3b (principal)
CPT/HCPCS: 36415; 80069; 82570; 84156

== ENCOUNTER → 2023-06-03 | Outpatient (CLI) | payer MEDICARE, SELFPAY ==
[2023-06-03 11:43] LABS: Absolute Lymphocyte Count 1.63 X10^3/uL (0.83-4.51); Absolute Neutrophil Count 2.8 X10^3/uL (2.0-7.7); Basophil# 0.02 X10^3/uL; Basophil% 0.4 % (0-1); Eosinophil# 0.17 X10^3/uL; Eosinophils% 3.1 % (0-5); Hematocrit 38.7 % (37-47); Lymphocyte # 1.63 X10^3/ul (0.83-4.51); Lymphocyte % 30.2 % (19-41); Mean Corpuscular Hgb 28.8 pg (27.0-32.0); Mean Platelet Vol. 10.8 fl (6.2-12.0); Monocyte# 0.73 X10^3/uL; Monocyte% 13.5 % (0-10); NRBC Flagged by Analyzer 0 % (0-5); Neutrophil # 2.84 X10^3/uL (2.7-7.7); Neutrophil % 52.6 % (47-70); Platelet Count 330 K/mm3 (150-450); RBC Distribution Width CV 13.8 % (11.6-14.6); RBC Distribution Width SD 46.9 fl (35.1-43.9); Red Blood Count 4.16 M/mm3 (4.2-5.4); White Blood Count 5.4 K/mm3 (4.4-11.0)
[2023-06-03 12:04] LABS: Vitamin D,25 Hydroxy 51.3 ng/mL
[2023-06-03 12:21] LABS: ALB/GLOB Ratio 0.8 RATIO (0.9-2.4); AST(SGOT) 18 U/L (15-37); Alanine Aminotransfer ALT/SGPT 23 U/L (13-56); Albumin, Serum 3.3 g/dL (3.2-5.0); Alkaline Phosphatase 100 U/L (45-117); Anion Gap 6 (5-15); BUN 25 mg/dL (7-18); BUN/Creat Ratio 20.2 RATIO (10-20); Calcium,Total 9.1 mg/dL (8.5-10.1); Chloride 111 mmol/L (98-107); Creatinine, Serum 1.24 mg/dL (0.55-1.02); EST Glomerular Filtration Rate 44 mL/min (>60); Est Glom Filt Rate - Afr Amer 53 mL/min (>60); Globulin 3.9 g/dL (2.2-4.2); Glucose 100 mg/dL (74-106); Potassium 4.4 mmol/L (3.5-5.1); Protein, Total 7.2 g/dL (6.4-8.2); Sodium Level 140 mmol/L (136-145); Thyroid Stim Hormone (TSH) 3.38 uIU/mL (0.358-3.74)
== END | disposition home or self-care (01) ==
LOC: POLAB3 10:46
PROVIDERS: PCP Family Medicine Geriatric Medicine; Visit Provider Family Medicine Geriatric Medicine
DX: I10 Essential (primary) hypertension (principal); E55.9 Vitamin D deficiency, unspecified
CPT/HCPCS: 36415; 80053; 82306; 84443; 85025

== ENCOUNTER → 2023-12-02 | Outpatient (CLI) | payer MEDICARE, SELFPAY ==
[2023-12-02 11:34] LABS: Absolute Neutrophil Count 3.2 X10^3/uL (2.0-7.7); Basophil# 0.03 X10^3/uL; Basophil% 0.5 % (0-1); Eosinophil# 0.29 X10^3/uL; Eosinophils% 4.7 % (0-5); Hematocrit 41.9 % (37-47); Hemoglobin 13.2 g/dL (12.0-15.0); Lymphocyte % 29.2 % (19-41); Mean Corp Hgb Conc 31.5 g/dL (32-36); Mean Corpuscular Hgb 28.6 pg (27.0-32.0); Mean Corpuscular Volume 90.9 fL (81-99); Mean Platelet Vol. 10.2 fl (6.2-12.0); Monocyte# 0.86 X10^3/uL; Monocyte% 13.9 % (0-10); NRBC Flagged by Analyzer 0 % (0-5); Neutrophil # 3.18 X10^3/uL (2.7-7.7); Neutrophil % 51.5 % (47-70); Platelet Count 330 K/mm3 (150-450); RBC Distribution Width SD 46.7 fl (35.1-43.9); Red Blood Count 4.61 M/mm3 (4.2-5.4); White Blood Count 6.2 K/mm3 (4.4-11.0)
[2023-12-02 11:59] LABS: Vitamin D,25 Hydroxy 39.1 ng/mL
[2023-12-02 12:13] LABS: ALB/GLOB Ratio 0.9 RATIO (0.9-2.4); AST(SGOT) 19 U/L (15-37); Alanine Aminotransfer ALT/SGPT 37 U/L (13-56); Albumin, Serum 3.6 g/dL (3.2-5.0); Alkaline Phosphatase 114 U/L (45-117); Anion Gap 9 (5-15); BUN 31 mg/dL (7-18); BUN/Creat Ratio 24.8 RATIO (10-20); Calcium,Total 9.8 mg/dL (8.5-10.1); Chloride 107 mmol/L (98-107); Creatinine, Serum 1.25 mg/dL (0.55-1.02); EST Glomerular Filtration Rate 43 mL/min (>60); Est Glom Filt Rate - Afr Amer 52 mL/min (>60); Globulin 3.8 g/dL (2.2-4.2); Glucose 93 mg/dL (74-106); Protein, Total 7.4 g/dL (6.4-8.2); Sodium Level 139 mmol/L (136-145)
== END | disposition home or self-care (01) ==
LOC: POLAB3 10:32
PROVIDERS: PCP Family Medicine Geriatric Medicine; Visit Provider Family Medicine Geriatric Medicine
DX: I10 Essential (primary) hypertension (principal); E55.9 Vitamin D deficiency, unspecified
CPT/HCPCS: 36415; 80053; 80069; 82306; 82728; 83550; 84443; 85025

== ENCOUNTER → 2024-06-02 | Outpatient (CLI) | payer MEDICARE, SELFPAY ==
[2024-06-02 10:44] LABS: Absolute Lymphocyte Count 1.87 X10^3/uL (0.83-4.51); Absolute Neutrophil Count 2.9 X10^3/uL (2.0-7.7); Basophil# 0.03 X10^3/uL; Basophil% 0.5 % (0-1); Eosinophil# 0.17 X10^3/uL; Hematocrit 41.3 % (37-47); Hemoglobin 13.5 g/dL (12.0-15.0); Lymphocyte # 1.87 X10^3/ul (0.83-4.51); Lymphocyte % 32.8 % (19-41); Mean Corp Hgb Conc 32.7 g/dL (32-36); Mean Corpuscular Hgb 30.1 pg (27.0-32.0); Mean Platelet Vol. 9.9 fl (6.2-12.0); Monocyte# 0.72 X10^3/uL; Monocyte% 12.6 % (0-10); NRBC Flagged by Analyzer 0 % (0-5); Neutrophil # 2.89 X10^3/uL (2.7-7.7); Neutrophil % 50.7 % (47-70); Platelet Count 322 K/mm3 (150-450); RBC Distribution Width CV 13.7 % (11.6-14.6); RBC Distribution Width SD 46.3 fl (35.1-43.9); Red Blood Count 4.49 M/mm3 (4.2-5.4); White Blood Count 5.7 K/mm3 (4.4-11.0)
[2024-06-02 11:08] LABS: Vitamin D,25 Hydroxy 56.1 ng/mL
[2024-06-02 11:16] LABS: ALB/GLOB Ratio 0.9 RATIO (0.9-2.4); AST(SGOT) 18 U/L (15-37); Alanine Aminotransfer ALT/SGPT 28 U/L (13-56); Albumin, Serum 3.6 g/dL (3.2-5.0); Alkaline Phosphatase 93 U/L (45-117); Anion Gap 5 (5-15); BUN 26 mg/dL (7-18); BUN/Creat Ratio 20.6 RATIO (10-20); Calcium,Total 9.7 mg/dL (8.5-10.1); Chloride 109 mmol/L (98-107); Creatinine, Serum 1.26 mg/dL (0.55-1.02); EST Glomerular Filtration Rate 43 mL/min (>60); Est Glom Filt Rate - Afr Amer 52 mL/min (>60); Globulin 3.9 g/dL (2.2-4.2); Glucose 102 mg/dL (74-106); Potassium 4.6 mmol/L (3.5-5.1); Protein, Total 7.5 g/dL (6.4-8.2); Sodium Level 139 mmol/L (136-145)
== END | disposition home or self-care (01) ==
LOC: POLAB3 10:15
PROVIDERS: PCP Family Medicine Geriatric Medicine; Visit Provider Family Medicine Geriatric Medicine
DX: I10 Essential (primary) hypertension (principal); E55.9 Vitamin D deficiency, unspecified

== ENCOUNTER → 2024-12-02 | Outpatient (CLI) | payer MEDICARE, SELFPAY ==
[2024-12-02 10:51] LABS: Hematocrit 43.6 % (37-47); Hemoglobin 14.3 g/dL (12.0-15.0); Immature Granulocytes Count 0.010 X10^3/uL (0.0-0.0); Mean Corp Hgb Conc 32.8 g/dL (32-36); Mean Corpuscular Volume 94.6 fL (81-99); Mean Platelet Vol. 10.4 fl (6.2-12.0); NRBC Flagged by Analyzer 0 % (0-5); Platelet Count 255 K/mm3 (150-450); RBC Distribution Width CV 14.9 % (11.6-14.6); RBC Distribution Width SD 51.9 fl (35.1-43.9); Red Blood Count 4.61 M/mm3 (4.2-5.4); White Blood Count 5.3 K/mm3 (4.4-11.0)
[2024-12-02 14:26] LABS: AST(SGOT) 29 U/L (<=31); Alanine Aminotransfer ALT/SGPT 33 U/L (<=34); Albumin, Serum 4.3 g/dL (3.4-4.8); Alkaline Phosphatase 118 U/L (35-104); Anion Gap 12 (5-15); BUN 29 mg/dL (4-19); BUN/Creat Ratio 23.0 RATIO (10-20); Calcium,Total 10.1 mg/dL (7.6-11.0); Carbon Dioxide 22.7 mmol/L (21.0-32.0); Chloride 106 mmol/L (98-108); Globulin 3.1 g/dL (2.2-4.2); Glucose 97 mg/dL (70-99); Potassium 4.5 mmol/L (3.3-5.1); Vitamin D,25 Hydroxy 50.2 ng/mL (30-100)
[2024-12-02 18:26] LABS: Xtra Tube Kwok EXTRA TUBE
== END | disposition home or self-care (01) ==
LOC: POLAB3 10:24
PROVIDERS: PCP Family Medicine Geriatric Medicine; Visit Provider Family Medicine Geriatric Medicine
DX: I10 Essential (primary) hypertension (principal); E55.9 Vitamin D deficiency, unspecified
CPT/HCPCS: 36415; 80053; 82306; 84443; 85025